=== PATIENT | male | born 1995 | race Caucasian/White ===

== ENCOUNTER 2018-01-29 23:45 | Emergency (ER) | payer BC, OTHER ==
[2018-01-30] MEDS ORDERED: predniSONE 20 MG Tab PO ONE (02:06)
--- NOTE | 2018-01-30 02:12 | EDM.PDOC ---
ED HPI GENERAL MEDICAL PROBLEM - General Chief Complaint: Skin Complaint Stated Complaint: RASH ALL OVER BODY Time Seen by Provider: 01/30/18 02:06 Source of Information: Reports: Patient, Family (spouse) History Limitations: Reports: No Limitations - History of Present Illness INITIAL COMMENTS - FREE TEXT/NARRATIVE: 22-year-old male presents to the ED in the wee hours of the morning due to inability to sleep due to severe discomfort i.e. pruritus from a rash that he's had for over 2 weeks. Patient states the rash seemed to start on his arms and that has spread now to his upper arms and across his upper back and a little bit on his lower extremities. 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 His clothing becomes soaked them in the substances. Patient has had the rash for about 2 weeks. Onset: Unknown/Unsure (Greater than 2 weeks) Onset Date: 01/15/18 Duration: Week(s):, Getting Worse Location: Reports: Generalized Quality: Reports: Other Severity: Severe (Severe pruritic rash) Improves with: Reports: None Worsens with: Reports: Other Context: Denies: Activity (Breathing or getting hot The rash worse), Exercise, Lifting, Sick Contact, Trauma Associated Symptoms: Reports: Rash (Sleep disruption due to the rash), Other. Denies: No Other Symptoms, Confusion, Chest Pain, Cough, cough w sputum, Diaphoresis, Fever/Chills, Headaches, Loss of Appetite, Malaise, Nausea/Vomiting , Seizure, Shortness of Breath, Syncope Treatments SLEEP TECH: Reports: Other (see below) (Benadryl when necessary for itch relief) Generalized Pain Score (Numeric/FACES): 8 - Related Data Allergies Allergy/AdvReac Type Severity Reaction Status Date / Time Penicillins Allergy Cannot Verified 01/29/18 23:52 Remember Home Meds: Home Meds Cetirizine HCl [Zyrtec] 10 mg PO ASDIRECTED PRN 01/29/18 [History] Betamethasone Valerate [Valisone 0.1% Crm] 45 gm .XX DAILY #2 tube 01/30/18 [Rx] predniSONE [Prednisone] 20 mg PO ASDIRECTED #22 tablet 01/30/18 [Rx] Past Medical History - Past Surgical History HEENT Surgical History: Reports: Tonsillectomy Social & Family History - Tobacco Use Smoking Status *Q: Current Every Day Smoker Years of Tobacco use: 7 Packs/Tins Daily: 0.5 - Alcohol Use Days Per Week of Alcohol Use: 7 Number of Drinks Per Day: 2 Total Drinks Per Week: 14 - Recreational Drug Use Recreational Drug Use: No - Living Situation & Occupation Living situation: Reports: Single Occupation: Employed ED ROS GENERAL - Review of Systems Review Of Systems: See Below Constitutional: Reports: Fatigue (From not sleeping due to itching.). Denies: Fever, Chills, Malaise, Weakness HEENT: Reports: No Symptoms Respiratory: Reports: No Symptoms Cardiovascular: Reports: No Symptoms Endocrine: Reports: No Symptoms GI/Abdominal: Reports: No Symptoms : Reports: No Symptoms, Incontinence Musculoskeletal: Reports: No Symptoms Skin: Reports: Rash (Normalized erythematous palpable rash arms legs) Neurological: Reports: No Symptoms ( and back.) Psychiatric: Reports: No Symptoms ED EXAM, SKIN/RASH Exam: See Below Exam Limited By: No Limitations General Appearance: Alert, WD/WN, No Apparent Distress Eye Exam: Bilateral Eye: Normal Inspection Respiratory/Chest: No Respiratory Distress, Lungs Clear, Normal Breath Sounds, Chest Non-Tender Cardiovascular: Normal Peripheral Pulses, Regular Rate, Rhythm, No Edema, No Murmur Peripheral Pulses: 3+: Posterior Tibial (L), Posterior Tibial (R), Dorsalis Pedis (L), Dorsalis Pedis (R) Skin: Warm, Dry, Intact, Rash (Patient has a generalized maculopapular rash with erythematous starting on the volar aspects of his forearms traveling up his arms both volarly and dorsally and involving his shoulders nape of neck and across the upper half of his back. Is nearly confluent in portions of his upper back. He has a similar sparser rash on his lower extremities below his cobbler boots involving his anterior legs. This rash has all the characteristics of an atopic dermatitis or contact eczema. It is likely caused from chemicals particularly diesel fuel which often gets on his skin and clothing in his workplace.) Location, Skin: Neck, Chest, Back, Upper Extremity, Right, Upper Extremity, Left , Lower Extremity, Right, Lower Extremity, Left. No: Genital, Palms, Soles, Axillary, Groin Characteristics: Maculopapular, Fine, Erythematous Associated features: No: Tenderness, Swelling, Induration, Scaling, Lymphangitis Course - Vital Signs Last Recorded V/S: Last Vital Signs Temp 37.3 C 01/29/18 23:54 Pulse 96 01/29/18 23:54 Resp 16 01/29/18 23:54 BP 147/85 H 01/29/18 23:54 Pulse Ox 99 01/29/18 23:54 - Orders/Labs/Meds Meds: Medications Discontinued Medications Generic Name Dose Route Start Last Admin Trade Name Jose A PRN Reason Stop Dose Admin Prednisone 30 mg 01/30/18 02:06 01/30/18 02:28 Prednisone PO 01/30/18 02:07 30 mg ONETIME ONE Administration - Radiology Interpretation Free Text/Narrative:: 22-year-old male presents the ED with a maculopapular rash which is extremely pruritic involving his upper extremities lower extremities from mid christian down and across the nape of his neck and upper half of his back. Rash started on his forearms and his spread over the last 2 weeks. Examination reveals the rash to be maculopapular erythematous and apparently very pruritic. It has all the characteristics of a atopic dermatitis likely from exposure to petrochemicals which get on his skin and clothing in his workplace in the oil field. Patient denies of course to try to avoid these chemicals and certainly avoid getting them soaked in his clothing. He is to wash his skin daily with Doppler Ivory only no perfume soaps. He will be placed on a course of prednisone starting with 30 mg in the ED tonight. He said take 20 mg twice a day with breakfast and supper for 8 days and then 1 tablet in the morning only for another 6 days to complete 14 days of treatment. Also placed him on betamethasone valerate cream to be applied to the rash at bedtime until clear. Follow-up needed if rash is not markedly improved in a week's time Departure - Departure Time of Disposition: 02:07 Disposition: Home, Self-Care 01 Condition: Fair Clinical Impression: Atopic contact dermatitis Qualifiers: Contact dermatitis trigger: other chemical product Qualified Code(s): L23.5 - Allergic contact dermatitis due to other chemical products - Discharge Information Prescriptions: Betamethasone Valerate [Valisone 0.1% Crm] 45 gm .XX DAILY #2 tube predniSONE [Prednisone] 20 mg PO ASDIRECTED #22 tablet Instructions: Contact Dermatitis, [id number] Referrals: PCP,None [Primary Care Provider] - Forms: ED Department Discharge, ED Return to Work/School Form Additional Instructions: Evaluation the emergency room today in regards to a generalized skin rash that started probably on her arms and has spread now to involve most of your upper back and to some degree on her anterior lower legs. Rash is called a maculopapular rash. It is secondary to a contact dermatitis meaning something that got on your skin and sensitize the skin lichen allergen. It's present of the skin 2 areas that particular to get hot or sweaty. Due to the nature of your job I strongly suspect the irritant is a petrochemical such as diesel fuel etc. Suggest taking at least 4-5 days away from the workplace to lecture skin settle down. Treatment is to take Deltasone or prednisone 20 mg twice daily 1 with breakfast and supper for the next 8 days and then 1 in the morning again for another 6 days to start to clear this rash up. Also topical medication betamethasone valerate to be applied to all areas of rash once daily at bedtime and then wear a white or light T-shirt to bed. You should see a marked improvement in the rash within the next 72 hours. Term it is important to try and prevent her skin from coming in contact with the petrochemical says they continue to sensitize the skin to the allergen. May use Benadryl 50 mg at nighttime to help with itching as needed.
== END 2018-01-30 02:32 | disposition home or self-care (01) ==
LOC: JD.ED 23:45
DX: L23.5 Allergic contact dermatitis due to other chemical products (principal); F17.210 Nicotine dependence, cigarettes, uncomplicated; Z88.0 Allergy status to penicillin
CPT/HCPCS: 99282; A9270

== ENCOUNTER 2018-08-10 20:11 | Emergency (ER) | payer BC ==
--- NOTE | 2018-08-10 21:11 | EDM.PDOC ---
ED HPI GENERAL MEDICAL PROBLEM - General Chief Complaint: Lower Extremity Injury/Pain Stated Complaint: LEFT ANKLE INJURY Time Seen by Provider: 08/10/18 20:22 Source of Information: Reports: Patient History Limitations: Reports: No Limitations - History of Present Illness INITIAL COMMENTS - FREE TEXT/NARRATIVE: The patient was walking outside of the [employer] and he inverted his ankle when he stepped on the edge of concrete and gravel. He has pain to the left lateral ankle but no other pain. He can walk on the ankle but it does hurt. Onset: Sudden Duration: Minutes: Location: Reports: Lower Extremity, Left (Ankle) Quality: Reports: Sharp Severity: Moderate Improves with: Reports: Immobilization Worsens with: Reports: Movement Associated Symptoms: Reports: No Other Symptoms left ankle Pain Score (Numeric/FACES): 7 - Related Data Allergies Allergy/AdvReac Type Severity Reaction Status Date / Time Penicillins Allergy Cannot Verified 08/10/18 20:23 Remember Home Meds: Home Meds . [No Known Home Meds] 08/10/18 [History] Past Medical History Other Musculoskeletal History: ankle surgeries, flat foot - Past Surgical History HEENT Surgical History: Reports: Tonsillectomy Social & Family History - Family History Family Medical History: Noncontributory - Tobacco Use Smoking Status *Q: Current Every Day Smoker Years of Tobacco use: 3 Packs/Tins Daily: 0.2 - Caffeine Use Caffeine Use: Reports: Soda - Recreational Drug Use Recreational Drug Use: No - Living Situation & Occupation Living situation: Reports: Single Occupation: Employed Review of Systems - Review of Systems Review Of Systems: See Below Constitutional: Reports: No Symptoms Eyes: Reports: No Symptoms Ears: Reports: No Symptoms Nose: Reports: No Symptoms Mouth/Throat: Reports: No Symptoms Respiratory: Reports: No Symptoms Cardiovascular: Reports: No Symptoms GI/Abdominal: Reports: No Symptoms Genitourinary: Reports: No Symptoms Musculoskeletal: Reports: Other (Left ankle pain) ED EXAM, GENERAL - Physical Exam Exam: See Below Exam Limited By: No Limitations General Appearance: Alert, No Apparent Distress Ears: Normal External Exam Nose: Normal Inspection Head: Atraumatic, Normocephalic Neck: Normal Inspection Respiratory/Chest: No Respiratory Distress Extremities: Other (Moderate edema to the left lateral ankle with moderate pain upon palpation. Good sensation and pulses. ) Course - Vital Signs Last Recorded V/S: Last Vital Signs Temp 98.1 F 08/10/18 20:15 Pulse 102 H 08/10/18 20:15 Resp 18 08/10/18 20:15 BP 156/97 H 08/10/18 20:15 Pulse Ox 97 08/10/18 20:15 - Orders/Labs/Meds Orders: Active Orders 24 hr Category Date Time Status Ankle Min 3V Lt [CR] Stat Exams 08/10/18 20:28 Taken - Re-Assessments/Exams Free Text/Narrative Re-Assessment/Exam: 08/10/18 21:08 I ordered an x-ray and it looked good. There is no fracture. I will get him a stirrup splint and crutches. Departure - Departure Time of Disposition: 21:10 Disposition: Home, Self-Care 01 Condition: Good Clinical Impression: Left ankle sprain Qualifiers: Encounter type: initial encounter Involved ligament of ankle: unspecified ligament Qualified Code(s): S93.402A - Sprain of unspecified ligament of left ankle, initial encounter - Discharge Information *PRESCRIPTION DRUG MONITORING PROGRAM REVIEWED*: No *COPY OF PRESCRIPTION DRUG MONITORING REPORT IN PATIENT THIERRY: No Referrals: PCP,Not In Area [Primary Care Provider] - Vicente Barker MD [Physician] - 1 Week Forms: ED Department Discharge, ED Return to Work/School Form Additional Instructions: Ice your ankle for 15 minutes 3 times per day for 2 days. Take motrin or tylenol for pain. Use the splint and crutches as needed. Follow up with Dr Barker if you are not better in a week. - My Orders Last 24 Hours: My Active Orders 08/10/18 20:28 Ankle Min 3V Lt [CR] Stat - Assessment/Plan Last 24 Hours: My Active Orders 08/10/18 20:28 Ankle Min 3V Lt [CR] Stat
--- NOTE | 2018-08-11 07:58 | CR ---
Left ankle: Four views of the left ankle were obtained. Comparison: No previous study. Soft tissue swelling is identified. Ankle mortise is symmetric. No fracture, dislocation or other bony abnormality is seen. Impression: 1. Soft tissue swelling. No bony abnormality is identified on left ankle exam. Diagnostic code #3
== END 2018-08-10 21:30 | disposition home or self-care (01) ==
LOC: JD.ED 20:11
DX: S93.402A Sprain of unspecified ligament of left ankle, initial encounter (principal); F17.210 Nicotine dependence, cigarettes, uncomplicated; Z88.0 Allergy status to penicillin; X50.9XXA Other and unspecified overexertion or strenuous movements or postures, initial encounter
CPT/HCPCS: 73610-26-LT; 73610-LT; 99282; 99283